=== PATIENT | female | born 1975 | race Two or more races ===

== ENCOUNTER 2021-09-11 04:29 | Day surgery (SDC) | payer OTHER ==
[2021-09-07 08:30] VITALS: BMI 25.7
[2021-09-11 11:10] VITALS: TEMP 97.7
[2021-09-11] MEDS ORDERED: MIDAZOLAM HCL 2 MG/2 ML SINGLE DOSE VIAL ONE (14:45)
[2021-09-11] MEDS ORDERED: KETOROLAC TROMETHAMINE 30 MG/1 ML VIAL ONE (14:56)
[2021-09-11 16:24] VITALS: PULSE 50
[2021-09-11 17:03] VITALS: BP 105/50
== END 2021-09-11 17:30 | disposition home or self-care (01) ==
LOC: JASU-SURG 04:29
PROVIDERS: ATTEND Urology
PROC: 0TF3XZZ Fragmentation in Right Kidney Pelvis, External Approach (ICD-10-PCS; principal; 2021-09-11 13:00)
DX: N20.0 Calculus of kidney (principal)
CPT/HCPCS: 81025